=== PATIENT | female | born 2000 | race Caucasian/White ===

== ENCOUNTER 2019-08-10 16:12 | Emergency (ER) | payer OTHER ==
[~2019-08-10] VITALS: Ht 167.6 cm; Wt 65.0 kg
[2019-08-10] MEDS ORDERED: IBUPROFEN 600 MG TABLET PO ONE (17:00)
[2019-08-10] MEDS ORDERED: SODIUM CHLORIDE 0.9% 1,000 ML IV ONE (17:00)
[2019-08-10 17:33] LABS: BASOPHILS % (AUTO) 0.5 % (0.0-2.0); HEMOGLOBIN 13.9 g/dL (12.0-16.0); LYMPHOCYTES # (AUTO) 1.6 K/uL (1.0-4.8); LYMPHOCYTES % (AUTO) 16.2 % (22.0-44.0); MEAN CORPUSCULAR HEMOGLOBIN 30.7 pg (26.0-34.0); MEAN CORPUSCULAR HGB CONC 33.9 G/dL (31.0-37.0); MEAN CORPUSCULAR VOLUME 90 fL (80-100); MONOCYTES # (AUTO) 1.2 K/uL (0.1-1.0); MONOCYTES % (AUTO) 12.2 % (2.0-9.0); NEUTROPHILS # (AUTO) 6.8 K/uL (1.8-7.7); NEUTROPHILS % (AUTO) 69.1 % (40.0-70.0); PLATELET COUNT (AUTO) 195 K/uL (150-450); RED BLOOD CELL COUNT(AUTO) 4.54 MIL/uL (4.00-5.20); RED CELL DISTRIBUTION WIDTH 12.6 % (11.5-14.5)
[2019-08-10 17:43] LABS: ANION GAP 10 mmol/L (8-16); CALCIUM, TOTAL 9.3 mg/dL (8.8-10.5); CARBON DIOXIDE 29 mmol/L (22-29); CHLORIDE 99 mmol/L (98-107); CREATININE 0.71 mg/dL (0.60-1.30); GLOMERULAR FILTR. RATE CALC > 60 mL/min (>60); GLUCOSE,RANDOM 81 mg/dL (70-110); POTASSIUM 3.4 mmol/L (3.5-5.1); SODIUM SERUM 138 mmol/L (136-145); UREA NITROGEN, BLOOD 16 mg/dL (7-18)
[2019-08-10 17:48] LABS: ALANINE AMINOTRANSFERASE 644 U/L (12-78); ALBUMIN 4.3 g/dL (3.4-5.0); ALKALINE PHOSPHATASE 68 U/L (46-116); ASPARTATE AMINOTRANSFERASE 192 U/L (15-37); BILIRUBIN,TOTAL 2.2 mg/dL (0.1-1.0); TOTAL PROTEIN, SERUM 8.3 g/dL (6.4-8.2)
[2019-08-10] MEDS ORDERED: SODIUM CHLORIDE 0.9% 100 ML ONE (18:16)
[2019-08-10] MEDS ORDERED: IOVERSOL 350 MG/ML 100 ML VIAL ONE (18:16)
[2019-08-10 18:25] LABS: LIPASE 55 U/L (73-393)
[2019-08-10 20:47] VITALS: BP 119/62
== END 2019-08-10 21:50 | disposition home or self-care (01) ==
LOC: EMS 16:14
DX: B00.9 Herpesviral infection, unspecified (principal); K76.0 Fatty (change of) liver, not elsewhere classified; R16.1 Splenomegaly, not elsewhere classified; R74.0 Nonspecific elevation of levels of transaminase and lactic acid dehydrogenase [LDH]; J40 Bronchitis, not specified as acute or chronic; F32.9 Major depressive disorder, single episode, unspecified
CPT/HCPCS: 36415; 71275; 76700; 80053; 83690; 84702; 85025; 85379; 86308; 99285; J7050; Q9967